=== PATIENT | female | born 1945 | race Caucasian/White ===

== ENCOUNTER → 2018-03-08 | Outpatient (CLI) | payer MEDICARE ==
[~2018-03-08] MED LIST: ALLO100 PO; ATOR40TA PO; Aspirin EC81 MG PO; COLCRYS0.6 MG PO; FLAX PO; FURO40 PO; GABA300 PO; Hydrocodone-Ap1 EA23 PO; Lotrel 5-40 MG1 EACH PO; METO25ER PO; OMEGA 3-6-9 CO400 MG PO; RALO60 PO; VITAMIN D-32000 UNIT PO
== END ==
LOC: LAB SHORT 14:23 → PLD 14:23
DX: D17.24 Benign lipomatous neoplasm of skin and subcutaneous tissue of left leg (principal)
CPT/HCPCS: 88304

== ENCOUNTER → 2018-08-17 | Outpatient (CLI) | payer MEDICARE | END | disposition home or self-care (01) | LOC: PLD 11:30 → LAB SHORT 11:30 | DX: L72.0 Epidermal cyst (principal) | CPT/HCPCS: 88304 ==

== ENCOUNTER → 2019-02-28 | Outpatient (CLI) | payer MEDICARE ==
[2019-02-28 13:53] LABS: Creatinine, Urine Random 41.9 mg/dL (27.00-270.00); Protein, Urine Random 6.4 mg/dL (0.0-11.9)
== END | disposition home or self-care (01) ==
LOC: LAB 12:33 → LAB SHORT 12:33
PROVIDERS: Internal Medicine
DX: N18.3 Chronic kidney disease, stage 3 (moderate) (principal)
CPT/HCPCS: 82570; 84156

== ENCOUNTER → 2020-03-26 | Outpatient (CLI) | payer MEDICARE | END | disposition home or self-care (01) | LOC: LAB EV 12:38 → LAB SHORT 12:38 | DX: R50.9 Fever, unspecified (principal); Z20.828 Contact with and (suspected) exposure to other viral communicable diseases | CPT/HCPCS: U0003 ==

== ENCOUNTER → 2021-01-23 | Outpatient (CLI) | payer OTHER ==
[~2021-01-23] MED LIST changes: +AMLO5 PO; +COLCHICINE0.6 M1 PO; +Metoprolol Succ25 MG PO; +Percocet 5-3251 EACH PO; +Stromectol3 MG PO
== END ==
LOC: LAB 15:37 → LAB SHORT 15:37
DX: D48.5 Neoplasm of uncertain behavior of skin (principal); Z88.0 Allergy status to penicillin; Z88.2 Allergy status to sulfonamides; Z88.8 Allergy status to other drugs, medicaments and biological substances
CPT/HCPCS: 88305

== ENCOUNTER 2021-02-19 06:04 | Day surgery (SDC) | payer OTHER, SELFPAY ==
[~2021-02-19] VITALS: Ht 165.1 cm; Wt 84.0 kg
[~2021-02-19 06:04] MED LIST changes: -Percocet 5-3251 EACH PO
--- NOTE | 2021-02-19 07:17 | NUR ---
KNEE HIGH EDGAR HOSE WITH CALF PAS APPLIED TO LLE. 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
--- NOTE | 2021-02-19 08:25 | NUR ---
02/19/21 0825 Romana Yeh SPINAL ATTEMPTED BY DR MALDONADO. CONVERTED TO GEN CARRION. WITH VENANCIO JEFFERSON STUDENT, LEARNING INTUBATION WITH DR MALDONADO.
--- NOTE | 2021-02-19 18:12 | NUR ---
SHIFT SUMMARY ARRIVED TO UNIT AT 11:15 & HAS DONE WELL POST OP. EATING, DRINKING, VOIDING, & PAIN WELL MANAGED. WORKED W/ THERAPY & UP TO CHAIR FOR DINNER.
[2021-02-20 05:07] LABS: BASOPHILS ABSOLUTE AUTO 0.02 K/mm3 (0.00-0.23); BASOPHILS PERCENT AUTO 0 % (0-2); EOSINOPHILS ABSOLUTE AUTO 0.01 K/mm3 (0.00-0.68); EOSINOPHILS PERCENT AUTO 0 % (0-6); Hematocrit 33.1 % (33.0-51.0); Hemoglobin 10.9 g/dL (11.5-16.0); IMMATURE GRAN ABSOLUTE AUTO 0.02 K/mm3 (0.00-0.10); IMMATURE GRAN PERCENT AUTO 0 % (0-1); LYMPHOCYTES ABSOLUTE AUTO 1.22 K/mm3 (0.84-5.20); LYMPHOCYTES PERCENT AUTO 13 % (21-46); MONOCYTES ABSOLUTE AUTO 1.16 K/mm3 (0.16-1.47); MONOCYTES PERCENT AUTO 12 % (4-13); Mean Corpuscular HGB 32.7 pg (26.0-34.0); Mean Corpuscular HGB Conc 32.9 g/dL (31.5-36.5); Mean Corpuscular Volume 99 fL (80-100); Mean Platelet Volume 9.9 fL (9.1-12.4); NEUTROPHILS ABSOLUTE AUTO 7.19 K/mm3 (1.96-9.15); NEUTROPHILS PERCENT AUTO 75 % (41-73); Platelet Count 187 K/mm3 (150-400); RDW Coefficient Variation 13.5 % (11.7-14.2); RDW Standard Deviation 49.6 fL (35.1-46.3); Red Blood Cell Count 3.33 M/mm3 (3.80-5.20); White Blood Cell Count 9.62 K/mm3 (4.00-11.30)
[2021-02-20 05:29] LABS: Anion Gap 6 mmol/L (6-16); Blood Urea Nitrogen 21 mg/dL (8-24); Bun/Creatinine Ratio 22.1 (12.0-20.0); CO2, Blood 27 mmol/L (21-32); Chloride, Blood 97 mmol/L (98-108); Creatinine, Blood 0.95 mg/dL (0.40-1.00); Glomerular Filtration Rate >60 (60-); Glucose, Blood 112 mg/dL (70-99); Potassium, Blood 3.8 mmol/L (3.5-5.5); Sodium, Blood 130 mmol/L (136-145)
--- NOTE | 2021-02-20 05:35 | NUR ---
SHIFT ASSESSMENT SITTING UP IN CHAIR AT BEDSIDE AFTER AMBULATING IN TO BATHROOM TO VOID. GOOD OUTPUT NOTED THROUGHOUT SHIFT. AAO X4, LOVE, FAC, HAS BEEN COOPERATIVE AND PLEASANT WITH CARE. NO SIGNIFICANT CHANGES NOTED. PAIN MANAGED WITH PRN AND SCHEDULED MEDS. SL PIV IS PATENT. SCD'S, EDGAR, AND POLAR PAC IN PLACE. PEGGY WRAP OVER AQUACELL IN PLACE. MEDICATED FOR PAIN AFTER AMBULATION. DENEIS FURTHER NEEDS AT THIS TIME. SAFETY MEASURES IN PLACE. WILL CONTINUE TO MONITOR AND GIVE HAND OFF TO ONCOMING SHIFT USING SBAR.
[2021-02-20] MEDS ORDERED: Percocet 5-3251 EACH PO (09:31)
--- NOTE | 2021-02-20 11:45 | NUR ---
DISCHARGE PT CLEARED THERAPY. PAIN WELL CONTROLLED. EATING, DRINKING, VOIDING WELL. SCRIPTS, DRSGS, & POLAR PACK SENT. ESCORTED OUT VIA W/C.
== END 2021-02-20 11:30 | disposition home or self-care (01) ==
LOC: ORSCMMR 06:04 → ORD 07:30 → ORSCMMR 07:30 → SURS 11:29 → ORSCMMR 02-20 11:30
PROVIDERS: Orthopaedic Surgery
PROC: 8E0Y0CZ Robotic Assisted Procedure of Lower Extremity, Open Approach (ICD-10-PCS; principal; 2021-02-19 07:30)
PROC: 0SRC0JA Replacement of Right Knee Joint with Synthetic Substitute, Uncemented, Open Approach (ICD-10-PCS; principal; 2021-02-19 07:30)
DX: M17.11 Unilateral primary osteoarthritis, right knee (principal); I10 Essential (primary) hypertension; E78.5 Hyperlipidemia, unspecified; N18.30 Chronic kidney disease, stage 3 unspecified; Z79.899 Other long term (current) drug therapy
CPT/HCPCS: 27447; S2900; 36415; 73560-RT; 80048; 85025; 97110; 97110-CQ; 97116-CQ; 97161; 97530; 97530-CQ; A9270; C1776; J0171; J0690; J0735; J1100; J2250; J2270; J2405; J2704; J2795; J3010; J7120

== ENCOUNTER → 2021-08-26 | Outpatient (CLI) | payer OTHER ==
[~2021-08-26] MED LIST changes: +Percocet 5-3251 EACH PO
== END | disposition home or self-care (01) ==
LOC: LAB SHORT 11:36
DX: K13.0 Diseases of lips (principal)
CPT/HCPCS: 88305

== ENCOUNTER 2021-10-04 06:16 | Day surgery (SDC) | payer OTHER ==
[~2021-10-04] VITALS: Ht 162.6 cm; Wt 76.9 kg
== END 2021-10-04 08:35 | disposition home or self-care (01) ==
LOC: ORSCSDS 06:16
PROVIDERS: Orthopaedic Surgery
PROC: 01N50ZZ Release Median Nerve, Open Approach (ICD-10-PCS; principal; 2021-10-04 07:30)
DX: G56.01 Carpal tunnel syndrome, right upper limb (principal); I10 Essential (primary) hypertension; N18.30 Chronic kidney disease, stage 3 unspecified; Z79.82 Long term (current) use of aspirin; Z79.899 Other long term (current) drug therapy
CPT/HCPCS: J0690; J1100; J2250; J2405; J2704; J3010; J7120

== ENCOUNTER → 2022-04-11 | Outpatient (CLI) | payer OTHER | END | disposition home or self-care (01) | LOC: LAB 13:50 → LAB SHORT 13:50 | DX: L03.115 Cellulitis of right lower limb (principal) | CPT/HCPCS: 87070; 87075; 87205 ==

== ENCOUNTER 2022-04-16 09:28 | Emergency (ER) | payer OTHER ==
[~2022-04-16] VITALS: Ht 162.6 cm; Wt 73.0 kg
== END 2022-04-16 12:39 | disposition home or self-care (01) ==
LOC: ER 09:28
DX: T84.020A Dislocation of internal right hip prosthesis, initial encounter (principal); V48.4XXA Person boarding or alighting a car injured in noncollision transport accident, initial encounter; Y79.2 Prosthetic and other implants, materials and accessory orthopedic devices associated with adverse incidents; Z88.0 Allergy status to penicillin; Z88.2 Allergy status to sulfonamides; Z79.899 Other long term (current) drug therapy
CPT/HCPCS: 27265; 73501; 73502; 94762; 96374; 99283-25; J1170; J2704; J7030

== ENCOUNTER 2022-05-12 08:00 | Day surgery (SDC) | payer OTHER | END 2022-05-12 23:59 | disposition home or self-care (01) | LOC: WOUND 08:00 | DX: L97.812 Non-pressure chronic ulcer of other part of right lower leg with fat layer exposed (principal); I87.2 Venous insufficiency (chronic) (peripheral) | CPT/HCPCS: A9270; G0463 ==

== ENCOUNTER 2022-05-19 02:35 | Day surgery (SDC) | payer OTHER | END 2022-05-19 23:32 | disposition home or self-care (01) | LOC: WOUND 02:35 | DX: L97.812 Non-pressure chronic ulcer of other part of right lower leg with fat layer exposed (principal); S81.801D Unspecified open wound, right lower leg, subsequent encounter; I87.2 Venous insufficiency (chronic) (peripheral); I73.9 Peripheral vascular disease, unspecified | CPT/HCPCS: A9270 ==

== ENCOUNTER 2022-06-06 03:10 | Day surgery (SDC) | payer OTHER | END 2022-06-06 23:30 | disposition home or self-care (01) | LOC: WOUND 03:10 | DX: L97.812 Non-pressure chronic ulcer of other part of right lower leg with fat layer exposed (principal); I87.2 Venous insufficiency (chronic) (peripheral); I73.9 Peripheral vascular disease, unspecified | CPT/HCPCS: A9270; G0463 ==

== ENCOUNTER 2022-06-20 01:39 | Day surgery (SDC) | payer OTHER | END 2022-06-20 23:15 | disposition home or self-care (01) | LOC: WOUND 01:39 | DX: L97.912 Non-pressure chronic ulcer of unspecified part of right lower leg with fat layer exposed (principal); S81.801D Unspecified open wound, right lower leg, subsequent encounter; W01.198D Fall on same level from slipping, tripping and stumbling with subsequent striking against other object, subsequent encounter; I87.2 Venous insufficiency (chronic) (peripheral); I73.9 Peripheral vascular disease, unspecified | CPT/HCPCS: G0463 ==

== ENCOUNTER 2022-09-15 08:42 | Day surgery (SDC) | payer OTHER | END 2022-09-15 23:17 | disposition home or self-care (01) | LOC: WOUND 08:42 | DX: Z09 Encounter for follow-up examination after completed treatment for conditions other than malignant neoplasm (principal); Z88.8 Allergy status to other drugs, medicaments and biological substances; Z88.0 Allergy status to penicillin; Z88.2 Allergy status to sulfonamides | CPT/HCPCS: G0463 ==

== ENCOUNTER → 2022-11-04 | Outpatient (CLI) | payer OTHER ==
[2022-11-04 13:34] LABS: Stool Occult Bld Immuno 1 Negative (NEGATIVE)
== END | disposition home or self-care (01) ==
LOC: LAB 10:49 → LAB SHORT 10:49
PROVIDERS: Internal Medicine
DX: D53.9 Nutritional anemia, unspecified (principal)
CPT/HCPCS: 82274

== ENCOUNTER 2023-01-27 09:05 | Day surgery (SDC) | payer OTHER ==
[~2023-01-27] VITALS: Ht 162.6 cm; Wt 73.7 kg
[~2023-01-27 09:05] MED LIST changes: +BENAZEPRIL HCL20 M2 PO; +VITAMIN D310 MC4 PO
--- NOTE | 2023-01-27 10:51 | NUR ---
WHEELCHAIR in TO Day Surgery. USES CANE NEEDED TO WALK. C/O NEW PAIN IN LEFT WRIST AFTER WRINING OUT A RAG LAST NIGHT. LEFT WRIST SLIGHTLY SWOLLEN. PT ABLE TO USE WALKER TO AMBULATE. History, Chart, Medications and Allergies reviewed before start of procedure.
--- NOTE | 2023-01-27 19:21 | NUR ---
SHIFT SUMMARY POD0 L TKA, A/OX4, VSS, TOLERATING PO, PAIN WELL MANAGED, UP TO BATHROOM AT START OF SHIFT CHANGE WITH MINIMAL ASSISTANCE. NO ACUTE EVENTS THIS SHIFT, CALL LIGHT IN REACH, REPORT GIVEN TO NOC RN
--- NOTE | 2023-01-28 04:09 | NUR ---
SHIFT SUMMARY PT RESTED WELL T/O SHIFT. NO ACUTE CHANGES. 2 GISSELLE/TYLENOL/TORADOL FOR PAIN MANAGEMENT. PEGGY WRAP TO LEFT KNEE REMAINS CDI WITH POLAR PACK IN PLACE. UP WITH 1 MIN ASSIST USING FWW + GB TO CHAIR/BRP. TAY PO. USES CALL LIGHT APPROPRIATELY.
[2023-01-28 05:34] LABS: BASOPHILS ABSOLUTE AUTO 0.01 K/mm3 (0.00-0.23); BASOPHILS PERCENT AUTO 0 % (0-2); EOSINOPHILS PERCENT AUTO 0 % (0-6); Hematocrit 32.3 % (33.0-51.0); Hemoglobin 11.1 g/dL (11.5-16.0); IMMATURE GRAN ABSOLUTE AUTO 0.02 K/mm3 (0.00-0.10); IMMATURE GRAN PERCENT AUTO 0 % (0-1); LYMPHOCYTES ABSOLUTE AUTO 0.82 K/mm3 (0.84-5.20); LYMPHOCYTES PERCENT AUTO 10 % (21-46); MONOCYTES ABSOLUTE AUTO 0.86 K/mm3 (0.16-1.47); MONOCYTES PERCENT AUTO 10 % (4-13); Mean Corpuscular HGB 33.3 pg (26.0-34.0); Mean Corpuscular HGB Conc 34.4 g/dL (31.5-36.5); Mean Corpuscular Volume 97 fL (80-100); Mean Platelet Volume 9.7 fL (9.1-12.4); NEUTROPHILS PERCENT AUTO 80 % (41-73); Platelet Count 213 K/mm3 (150-400); RDW Coefficient Variation 13.1 % (11.7-14.2); RDW Standard Deviation 46.9 fL (35.1-46.3); Red Blood Cell Count 3.33 M/mm3 (3.80-5.20); White Blood Cell Count 8.61 K/mm3 (4.00-11.30)
[2023-01-28 05:51] LABS: Bun/Creatinine Ratio 32.1 (12.0-20.0); Calcium, Blood 8.8 mg/dL (8.5-10.1); Creatinine, Blood 0.97 mg/dL (0.40-1.00); Potassium, Blood 4.1 mmol/L (3.5-5.5)
[2023-01-28] MEDS ORDERED: Aspir 8181 MG PO (07:47)
[2023-01-28] MEDS ORDERED: Percocet 5-3251 EACH PO (08:07)
--- NOTE | 2023-01-28 08:17 | NUR ---
OOB TO CHAIR, MEDICATED FOR PAIN, PT STATES SHE DIDN'T HAVE TO TAKE ASA POST OP "THEY SAID I DID SO WELL LAST TIME THAT I DON'T NEED IT" CLARIFIED WITH JAMIR OCAMPO,PAC, PT DOES NEED TO TAKE ASA POST OP FOR 2 WEEKS FOR ANTICOAGULATION THERAPY, EXPLAINED TO PT AND AGREES TO TAKE ASA.
--- NOTE | 2023-01-28 14:28 | NUR ---
UP TO CHAIR, REFUSED TO AMBULATE AT THIS TIME, STATES SHE AMBULATED TO THE BATHROOM.
--- NOTE | 2023-01-28 14:45 | NUR ---
DC INSTRUCTIONS GIVEN, VERBALIZED UNDERSTANDING, PT WAITING FOR RIDE HOME.
--- NOTE | 2023-01-28 15:31 | NUR ---
PT DC'D HOME W/ DAUGHTER, BELONGINGS GIVEN TO PT AND DAUGHTER.
== END 2023-01-28 15:33 | disposition home or self-care (01) ==
LOC: ORSCMMR 09:05 → ORD 10:00 → ORSCMMR 10:30 → ORD 11:00 → SURS 15:07 → ORSCMMR 01-28 15:33
PROVIDERS: Orthopaedic Surgery
PROC: 8E0Y0CZ Robotic Assisted Procedure of Lower Extremity, Open Approach (ICD-10-PCS; principal; 2023-01-27 10:30)
PROC: 0SRD0JA Replacement of Left Knee Joint with Synthetic Substitute, Uncemented, Open Approach (ICD-10-PCS; principal; 2023-01-27 10:30)
DX: M17.12 Unilateral primary osteoarthritis, left knee (principal); I10 Essential (primary) hypertension; Z79.899 Other long term (current) drug therapy
CPT/HCPCS: 27447; 20985; S2900; 36415; 73560-LT; 80048; 85025; 94760; 97110; 97116; 97162; A9270; C1776; J0171; J0690; J0735; J1100; J1170; J1885; J2405; J2704; J2795; J3010; J7120

== ENCOUNTER 2023-04-20 10:07 | Emergency (ER) | payer OTHER ==
[~2023-04-20] VITALS: Ht 162.6 cm; Wt 70.3 kg
[~2023-04-20 10:07] MED LIST changes: +Aspir 8181 MG PO
[2023-04-20 10:33] VITALS: BP 140/79
[2023-04-20] MEDS ORDERED: Norco 5-325 Ta1 EACH PO (11:45)
== END 2023-04-20 12:06 | disposition home or self-care (01) ==
LOC: ER 10:07
DX: S32.591A Other specified fracture of right pubis, initial encounter for closed fracture (principal); Z88.0 Allergy status to penicillin; Z88.2 Allergy status to sulfonamides; Z88.1 Allergy status to other antibiotic agents; Z79.82 Long term (current) use of aspirin; W01.0XXA Fall on same level from slipping, tripping and stumbling without subsequent striking against object, initial encounter
CPT/HCPCS: 73502; A9270